=== PATIENT | female | born 1960 | race Caucasian/White ===

== ENCOUNTER → 2017-04-19 | Outpatient (CLI) | payer BC ==
[~2017-04-19] MED LIST: IBUPROFEN600 MG PO; PRILOSEC40 MG PO; PRINIVIL5 MG PO
== END | disposition home or self-care (01) ==
LOC: RAD 13:54
PROC: BH47ZZZ Ultrasonography of Upper Extremity (ICD-10-PCS; principal; 2017-04-19)
DX: Z53.09 Procedure and treatment not carried out because of other contraindication (principal)
CPT/HCPCS: 76882